=== PATIENT | female | born 1980 | race Caucasian/White ===

== ENCOUNTER 2016-10-28 17:54 | Emergency (ER) | payer OTHER ==
[~2016-10-28] VITALS: Ht 162.6 cm; Wt 85.0 kg
[~2016-10-28 17:54] MED LIST: ANAP550T PO; PRED10 PO; PRENTAB62 PO; SENN1TAB11 PO
[2016-10-28 17:59] VITALS: BP 127/80; PULSE 78; RESP 16; TEMP 98.3; O2SAT 97
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
[2016-10-28] MEDS ORDERED: BACL10TA PO (20:36)
[2016-10-28] MEDS ORDERED: IBUP800T23 PO (20:36)
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
[2016-12-28] MEDS ORDERED: CYCL7.5T33 PO (16:42)
== END 2016-10-28 21:45 | disposition home or self-care (01) ==
LOC: NEPB 17:54
DX: S16.1XXA Strain of muscle, fascia and tendon at neck level, initial encounter (principal); V43.52XA Car driver injured in collision with other type car in traffic accident, initial encounter; Y93.89 Activity, other specified; Y92.89 Other specified places as the place of occurrence of the external cause
CPT/HCPCS: 70450; 71010; 72125